=== PATIENT | female | born 1995 | race American Indian/Alaskan Native ===

== ENCOUNTER 2018-08-07 21:38 | Outpatient (CLI) | payer MEDICAID ==
[2018-08-07] MEDS ORDERED: LACTATED RINGERS 1,000 ML IV ONE (21:55)
[2018-08-07 22:31] VITALS: BP 102/59
[2018-08-07 22:43] LABS: Bacteria,Urine 1+ /HPF (Negative)
[2018-08-07 22:52] LABS: Bilirubin,Urine NEG (Negative); Blood,Urine NEG (Negative); Color,Urine Yellow (Yellow); Mucus,Urine FEW /HPF; Protein,Urine <15 mg/dL mg/dL (Negative)
[2018-08-07] MEDS ORDERED: ZOFRAN IV PRN (23:47)
== END 2018-08-08 00:41 | disposition home or self-care (01) ==
LOC: TRG 21:38
PROVIDERS: ATTEND Obstetrics & Gynecology Gynecology
DX: O47.03 False labor before 37 completed weeks of gestation, third trimester (principal); Z3A.34 34 weeks gestation of pregnancy
CPT/HCPCS: 59025; 81001; 96360; 96361; 96374; J2405; J7120